=== PATIENT | male | born 1990 | race African-American/Black ===

== ENCOUNTER 2016-05-17 15:17 | Emergency (ER) | payer MEDICAID ==
[~2016-05-17] VITALS: Ht 170.2 cm; Wt 75.0 kg
[~2016-05-17 15:17] MED LIST: HYDR-1348
[2016-05-17] MEDS ORDERED: IBUPROFEN 600MG TABLET PO STA (15:43)
[2016-05-17] MEDS ORDERED: HYDROCODONE/ACETAMINOPHEN 5/325MG TABLET PO STA (15:43)
[2016-05-17 17:28] VITALS: BP 128/72
== END 2016-05-17 18:18 | disposition home or self-care (01) ==
LOC: ER 15:18
DX: S20.219A Contusion of unspecified front wall of thorax, initial encounter (principal); M54.89 Other dorsalgia; S41.011A Laceration without foreign body of right shoulder, initial encounter; R03.0 Elevated blood-pressure reading, without diagnosis of hypertension; R50.9 Fever, unspecified; V03.10XA Pedestrian on foot injured in collision with car, pick-up truck or van in traffic accident, initial encounter; Y93.89 Activity, other specified; Y92.89 Other specified places as the place of occurrence of the external cause
CPT/HCPCS: 71010; 99283; Z7610

== ENCOUNTER 2017-02-01 11:58 | Emergency (ER) | payer SELFPAY ==
[~2017-02-01] VITALS: Ht 167.6 cm; Wt 73.0 kg
[2017-02-01 15:44] VITALS: BP 124/76
[2017-02-01] MEDS ORDERED: IBUPROFEN 600MG TABLET PO ONE (15:45)
[2017-02-01] MEDS ORDERED: ALBUTEROL (0.083%) 2.5MG/3ML NEB HHN ONE (16:15)
== END 2017-02-01 16:19 | disposition left against medical advice (07) ==
LOC: ER 12:36
DX: R07.89 Other chest pain (principal)
CPT/HCPCS: 71010; 93005; 99284

== ENCOUNTER 2017-09-28 15:04 | Emergency (ER) | payer SELFPAY ==
[~2017-09-28] VITALS: Ht 160 cm; Wt 68.0 kg
[2017-09-28 19:33] VITALS: BP 120/81
== END 2017-09-28 21:33 | disposition home or self-care (01) ==
LOC: ER 15:04
DX: B35.3 Tinea pedis (principal)
CPT/HCPCS: 93970; 99284

== ENCOUNTER 2019-07-16 19:43 | Emergency (ER) | payer MEDICAID ==
[~2019-07-16] VITALS: Ht 157.5 cm; Wt 75.0 kg
[2019-07-16 21:14] VITALS: BP 124/74
== END 2019-07-16 21:16 | disposition home or self-care (01) ==
LOC: ER 19:43
DX: B35.1 Tinea unguium (principal); R03.0 Elevated blood-pressure reading, without diagnosis of hypertension
CPT/HCPCS: 99282; 99283

== ENCOUNTER 2019-09-19 15:43 | Emergency (ER) | payer MEDICAID ==
[~2019-09-19] VITALS: Ht 177.8 cm; Wt 77.0 kg
[2019-09-19] MEDS ORDERED: SODIUM CHLORIDE 0.9% 1,000 ML IV ONE (16:39)
[2019-09-19 17:25] LABS: BASOPHILS % 0.6 % (0.0-2.0); EOSINOPHILS % 0.5 % (0.0-5.0); HEMATOCRIT. 45.9 % (42.0-52.0); HEMOGLOBIN. 15.7 g/dL (14.0-18.0); LYMPHOCYTES % 13.2 % (20.0-50.0); MEAN CORPUSCULAR VOLUME 93.5 fL (80.0-94.0); MEAN PLATELET VOLUME 8.6 fl (7.4-10.4); MONOCYTES % 6.3 % (2.0-8.0); NEUTROPHILS % 79.4 % (40.0-76.0); PLATELET 227 x1000/uL (130-400); RED BLOOD CELL COUNT 4.91 mill/uL (4.7-6.1); RED CELL DISTRIBUTION WIDTH 13.3 % (11.6-14.6)
[2019-09-19 17:34] LABS: CHLORIDE 105 mEq/L (98-107)
[2019-09-19 17:38] LABS: ETHANOL BLOOD < 10 mg/dL
[2019-09-19 18:00] LABS: CLARITY URINE CLEAR (CLEAR); COLOR URINE YELLOW (YELLOW); KETONES URINE NEGATIVE (NEGATIVE); LEUKOCYTE ESTERASE URINE NEGATIVE (NEGATIVE); NITRITE URINE NEGATIVE (NEGATIVE); OCCULT BLOOD URINE NEGATIVE (NEGATIVE); PH URINE 7.5 (4.5-8.0); PROTEIN URINE NEGATIVE (NEGATIVE); SPECIFIC GRAVITY URINE 1.011 (1.005-1.030); UROBILINOGEN URINE 0.2 E.U./dL (0.2-1.0)
[2019-09-19 18:15] LABS: *AMPHETAMINES SCREEN URINE PRESUMTIVE POSITIVE (NEGATIVE); *BARBITURATES SCREEN URINE NEGATIVE (NEGATIVE)
[2019-09-19 18:16] LABS: *BENZODIAZEPINES SCREEN URINE NEGATIVE (NEGATIVE); *COCAINE SCREEN URINE NEGATIVE (NEGATIVE); CANNABINOID URINE SCREEN NEGATIVE (NEGATIVE); METHADONE URINE SCREEN NEGATIVE (NEGATIVE); OPIATES URINE SCREEN PRESUMTIVE POSITIVE (NEGATIVE); PHENCYCLIDINE URINE SCREEN NEGATIVE (NEGATIVE)
[2019-09-19 19:18] VITALS: BP 132/94
== END 2019-09-19 19:27 | disposition home or self-care (01) ==
LOC: ER 15:43
DX: T40.2X1A Poisoning by other opioids, accidental (unintentional), initial encounter (principal); R55 Syncope and collapse; F11.10 Opioid abuse, uncomplicated; F15.10 Other stimulant abuse, uncomplicated; Y92.89 Other specified places as the place of occurrence of the external cause; R03.0 Elevated blood-pressure reading, without diagnosis of hypertension
CPT/HCPCS: 36415; 71045; 80053; 80305; 80320; 81003; 85025; 93005; 99285; J7030; G0480

== ENCOUNTER 2020-03-19 10:47 | Emergency (ER) | payer MEDICAID ==
[~2020-03-19] VITALS: Ht 165.1 cm; Wt 70.0 kg
[2020-03-19 10:52] VITALS: BP 120/88
[2020-03-19] MEDS ORDERED: TETANUS, DIPHTHERIA, PERTUSSIS VAC/PF 0.5ML (>7YR OLD) IM ONE (11:15)
[2020-03-19] MEDS ORDERED: BACITRACIN ZINC OINT UDPKT TOP ONE (11:15)
[2020-03-19] MEDS ORDERED: LIDOCAINE HCL/PF 1% 10 MG/ML 5ML VIAL IJ ONE (11:15)
[2020-03-19] MEDS ORDERED: ACETAMINOPHEN 325MG TABLET PO ONE (11:15)
== END 2020-03-19 13:29 | disposition left against medical advice (07) ==
LOC: ER 10:47
DX: S61.211A Laceration without foreign body of left index finger without damage to nail, initial encounter (principal); S61.217A Laceration without foreign body of left little finger without damage to nail, initial encounter; W20.8XXA Other cause of strike by thrown, projected or falling object, initial encounter; Y93.89 Activity, other specified; Y92.038 Other place in apartment as the place of occurrence of the external cause; Z23 Encounter for immunization
CPT/HCPCS: 12001; 73130; 90471; 90715; 99283; J3490

== ENCOUNTER 2020-11-27 20:55 | Emergency (ER) | payer MEDICAID, OTHER ==
[~2020-11-27] VITALS: Ht 162.6 cm; Wt 68.0 kg
[2020-11-27 21:14] VITALS: BP 130/86
[2020-11-28] MEDS ORDERED: HYDR-4001 PO (04:19)
[2020-11-28] MEDS ORDERED: CEPH500C2 PO (04:19)
== END 2020-11-27 21:52 | disposition left against medical advice (07) ==
LOC: ER 20:55
DX: S61.412A Laceration without foreign body of left hand, initial encounter (principal); F41.9 Anxiety disorder, unspecified; Y07.04 Female partner, perpetrator of maltreatment and neglect; X99.9XXA Assault by unspecified sharp object, initial encounter; Y93.89 Activity, other specified; Y92.038 Other place in apartment as the place of occurrence of the external cause
CPT/HCPCS: 99283

== ENCOUNTER 2020-11-28 02:40 | Emergency (ER) | payer OTHER ==
[~2020-11-28] VITALS: Ht 160 cm; Wt 73.4 kg
[2020-11-28] MEDS ORDERED: KETOROLAC 60MG/2ML VIAL IM STA (03:01)
[2020-11-28] MEDS ORDERED: LIDOCAINE HCL/EPINEPHRINE 1%-EPI 1:100,000 20 ML VIAL INFIL ONE (03:15)
[2020-11-28] MEDS ORDERED: BACITRACIN ZINC OINT UDPKT TOP ONE (03:15)
[2020-11-28] MEDS ORDERED: HYDROCODONE/ACETAMINOPHEN 5/325MG TABLET PO ONE (03:15)
[2020-11-28] MEDS ORDERED: CEPHALEXIN 250MG CAPSULE PO NR (04:15)
[2020-11-28] MEDS ORDERED: HYDR-4001 PO (04:19)
[2020-11-28] MEDS ORDERED: CEPH500C2 PO (04:19)
[2020-11-28 04:30] VITALS: BP 125/84
== END 2020-11-28 04:47 | disposition home or self-care (01) ==
LOC: ER 02:40
DX: S61.412A Laceration without foreign body of left hand, initial encounter (principal); F14.10 Cocaine abuse, uncomplicated; F15.10 Other stimulant abuse, uncomplicated; F11.10 Opioid abuse, uncomplicated; X58.XXXA Exposure to other specified factors, initial encounter; Y93.89 Activity, other specified; Y92.89 Other specified places as the place of occurrence of the external cause; Y99.8 Other external cause status
CPT/HCPCS: 12002; 73130; 96372; 99283; J1885; J3490; Z7610

== ENCOUNTER 2021-04-04 21:05 | Emergency (ER) | payer MEDICAID, OTHER ==
[~2021-04-04] VITALS: Ht 160 cm; Wt 70.8 kg
[~2021-04-04 21:05] MED LIST changes: +CEPH500C2 PO; +HYDR-4001 PO
[2021-04-04] MEDS ORDERED: CEPHALEXIN 250MG CAPSULE PO ONE (21:45)
[2021-04-04] MEDS ORDERED: DOXYCYCLINE HYCLATE 100MG CAPSULE PO ONE (21:45)
[2021-04-04 22:12] VITALS: BP 160/99
[2021-04-04] MEDS ORDERED: DOXY100C5 MT (22:56)
[2021-04-04] MEDS ORDERED: CEPH750C9 MT (22:56)
== END 2021-04-04 23:00 | disposition home or self-care (01) ==
LOC: ER 21:10
DX: L03.114 Cellulitis of left upper limb (principal); L03.113 Cellulitis of right upper limb; L73.9 Follicular disorder, unspecified; L08.9 Local infection of the skin and subcutaneous tissue, unspecified; R03.0 Elevated blood-pressure reading, without diagnosis of hypertension; F14.90 Cocaine use, unspecified, uncomplicated; F15.90 Other stimulant use, unspecified, uncomplicated; F11.90 Opioid use, unspecified, uncomplicated; Z87.828 Personal history of other (healed) physical injury and trauma
CPT/HCPCS: 86592; 99283